=== PATIENT | female | born 1990 | race Caucasian/White ===

== ENCOUNTER 2018-06-22 16:18 | Emergency (ER) | payer SELFPAY ==
[2018-06-22] MEDS ORDERED: LOR1 PO (16:29)
[2018-06-22 16:30] VITALS: BP 111/79
--- NOTE | 2018-06-22 16:37 | ER Report ---
History and Physical Time Seen By MD: 16:37 Hx. of Stated Complaint: Pt. traveling from [place] to [place] and left her Ativan in a hotel room. She has been having panic attacks and needs her medication. HPI/ROS 28-year-old female presents to the emergency department requesting a refill for Ativan that she "left in a hotel room in [place]." She states that she received the prescription from an urgent care in [place]. She is since driven from [place] to [place] or again to [place] in route to [place]. She states that she takes the prescription for anxiety. She states that non-benzodiazepine medications "do not work" for her anxiety. She told the nurse that she doesn't drink alcohol, but then told me that she was also going through alcohol withdrawal. no trauma, no seizure activity. Allergies: Coded Allergies: latex (Verified Allergy, Mild, rash, 06/22/18) vancomycin (Verified Allergy, Mild, hives, 06/22/18) Home Meds Reported Medications Lorazepam (LORAZEPAM) 1 Mg Tab, PO TID, TAB 06/22/18 Reviewed Nurses Notes: Yes Hx Smoking: Yes Smoking Status: Current: Every Day Smoker Hx Substance Use Disorder: Yes Hx Alcohol Use: Yes Constitutional Physical Exam General Appearance: The patient is alert, has no immediate need for airway protection and no current signs of toxicity. Eyes: Pupils equal and round no injection. Respiratory: Chest is non tender, lungs are clear to auscultation. Cardiac: regular rate and rhythm Gastrointestinal: Abdomen is soft and non tender, no masses, bowel sounds normal. Neck: Neck is supple and non tender. Extremities have full range of motion and are non tender. Skin: No rashes or lesions. Medical Decision Making ED Course/Re-evaluation ED Course The patient continued to insist that she was going through benzodiazepine withdrawal, although stated that she had not had her benzodiazepines in 4-5 days. Clinically she did not appear to be going through which all. Her vital signs were normal. She also mentioned to me that she was going through alcohol withdrawal, although no clinical signs of alcohol withdrawal. She also told nursing staff that she did not drink alcohol. I offered her admission to the hospital for alcohol withdrawal, but she refused. I also offered her to start her on and non-benzodiazepine medication for anxiety. She refused any other medications other than benzodiazepines. When I told her I was not going to refill her prescription, she became very agitated and left the emergency department. Decision to Disposition Date: Jun 22, 2018 Decision to Disposition Time: 18:00 Depart Departure Latest Vital Signs Impression: Primary Impression: Encounter for medication refill Condition: Improved Disposition: HOME OR SELF-CARE TIFFANY ROA MD Jun 22, 2018 16:37
== END 2018-06-22 17:14 | disposition left against medical advice (07) ==
LOC: ER 16:45
DX: Z76.0 Encounter for issue of repeat prescription (principal)
CPT/HCPCS: 99281